=== PATIENT | male | born 1965 | race African-American/Black ===

== ENCOUNTER 2020-03-03 16:41 | Emergency (ER) | payer SELFPAY ==
[~2020-03-03] VITALS: Ht 190.5 cm; Wt 74.8 kg
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
[2020-03-03 18:00] VITALS: BP 128/66
--- NOTE | 2020-03-03 18:01 | NUR ---
Patient discharged to home in stable condition. Written and verbal after care instructions given. Patient verbalizes understanding of instruction.
== END 2020-03-03 18:01 | disposition home or self-care (01) ==
LOC: ER 16:44
DX: S60.512A Abrasion of left hand, initial encounter (principal); V49.49XA Driver injured in collision with other motor vehicles in traffic accident, initial encounter; Y93.89 Activity, other specified; Y92.488 Other paved roadways as the place of occurrence of the external cause; Y99.8 Other external cause status
CPT/HCPCS: 99283; A6403